=== PATIENT | female | born 1985 | race Caucasian/White ===

== ENCOUNTER 2016-09-14 08:20 | Emergency (ER) | payer OTHER ==
--- NOTE | ~2016-09-14 | CR173 ---
[facility] A Service of [facility] & [facility] RADIOLOGY TEXT RESULTS PATIENT: LATRELL CHAN LOCATION: [facility] : 85 UNIT #: [id number] AGE: [address]: Albania Cardenas SEX: F ORDER DR: [id number] [facility] [address] [place], [place] [address] [id number] E MR#: [id number] Acc #: [id number] NAME: LATRELL CHAN. : 1985 SEX: F STUDY DATE/TIME: 09/14/2016 8:53 UNIT: [facility] ROOM: STUDY DESCRIPTION: CR Knee 3 Views Rt Attending Physician: Albania Cardenas Pa-C Ordering Physician: Ed Eric Schuler M.D. Primary Care Physician: Primary Care Physician No MEDICAL IMAGING REPORT This report is preliminary unless electronic signature is present EXAM Right knee HISTORY Knee pain after falling on concrete 5 days ago. TECHNIQUE 3 views of the knee were obtained. FINDINGS AP and lateral projection of the knee shows smooth articular anatomy without indication of fracture or dislocation at the major weight-bearing surface of the knee. There is no indication of radiopaque foreign body about the knee surface or joint effusion. IMPRESSION Normal knee. Dictated by... Shailesh Cardona M.D. THIS IS AN ELECTRONICALLY VERIFIED REPORT Shailesh Cardona M.D. at 09/15/2016 10:30 AM RLF/elke TD: 09/14/2016 11:47 JOB #: [id number] MEDICAL IMAGING REPORT Page 1 of 1 COPY
[~2016-09-14 08:20] MED LIST: BACTRIM DS TABL1 TA1 PO; CELEXA; CLINDAMYCIN HC300 MG PO; FLEXERIL10 MG PO; GUAIFENESIN CO PO; IBUPROFEN PO; IBUPROFEN800 MG PO; KLONOPIN; LORTAB 10-5001 EACH; LORTAB 7.51 TAB 7.5/ PO; NO MEDICATIONS; PERCOCET 5-3251 TAB PO; PERCOCET PO; PHENERGAN25 MG PO; VIBRAMYCIN100 M1 PO; VICODIN; [UNRECOGNIZED DRUG - REMARK]
== END 2016-09-14 09:40 | disposition home or self-care (01) ==
LOC: CFTX 08:20 → CED 08:20 → CFTX 08:46
DX: S83.91XA Sprain of unspecified site of right knee, initial encounter (principal); F41.8 Other specified anxiety disorders; F17.200 Nicotine dependence, unspecified, uncomplicated; W18.30XA Fall on same level, unspecified, initial encounter; Y92.009 Unspecified place in unspecified non-institutional (private) residence as the place of occurrence of the external cause
CPT/HCPCS: 73562; 99283

== ENCOUNTER → 2016-09-21 | Outpatient (CLI) | payer OTHER ==
--- NOTE | ~2016-09-21 | MR104 ---
[facility] A Service of [facility] RADIOLOGY TEXT RESULTS PATIENT: LATRELL CHAN LOCATION: [facility] : 85 UNIT #: [id number] AGE: [address]: Joselo Lockwood MD SEX: F ORDER DR: [id number] [facility] [address] [place], [place] [address] [id number] O MR#: [id number] Acc #: [id number] NAME: LATRELL CHAN. : 1985 SEX: F STUDY DATE/TIME: 09/21/2016 18:33 UNIT: [facility] ROOM: STUDY DESCRIPTION: MR Knee Wo Contrast Rt Attending Physician: Joselo Lockwood M.D. Ordering Physician: Joselo Lockwood M.D. MRI CENTER REPORT This report is preliminary unless electronic signature is present. EXAM Right knee MRI without contrast 09/21/2016 HISTORY 31-year-old female with medial right knee pain status post fall 1.5 weeks ago. No prior right knee surgery. COMPARISON STUDIES Right knee x-rays 07/05/2009 and 09/14/2016. TECHNIQUE Routine unenhanced multiplanar, multisequence high-field MR imaging right knee was performed. This CT exam was performed with one or more of the following radiation dose reduction techniques: automatic exposure control, adjustment of mA and/or kV according to patient size, and iterative reconstruction. FINDINGS The menisci are intact. Cruciate ligaments are intact. There is a grade 1-2 sprain of the proximal MCL. No evidence of a retracted. MCL rupture. Lateral collateral ligament complex is intact. Extensor mechanism is intact. There is a physiologic amount of joint fluid. No popliteal cyst. Patellofemoral articular cartilage is intact. Medial and lateral compartment articular cartilage is intact. There is a nondisplaced, non-depressed impaction fracture involving the posterior lip of the lateral tibial plateau with associated marrow edema. There is also mild marrow edema along the far medial aspect of the medial [facility] Service of [facility] RADIOLOGY TEXT RESULTS PATIENT: LATRELL CHAN LOCATION: [facility] : 85 UNIT #: [id number] AGE: [address]: Joselo Lockwood MD SEX: F ORDER DR: femoral condyle. Remainder of the bone marrow signal is within expected limits. Visualized musculature is unremarkable. IMPRESSION 1. Grade 1-2 proximal MCL sprain. 2. No evidence of a meniscus tear. Cruciate ligaments are intact. 3. Nondisplaced, non-depressed impaction fracture of the posterior lip of the lateral tibial plateau. 4. Mild marrow edema in the far medial aspect of the medial femoral condyle, which may be secondary to mild bone contusion versus reactive enthesopathic marrow changes. 5. No evidence of significant articular cartilage loss. Dictated by... David Garcia M.D. THIS IS AN ELECTRONICALLY VERIFIED REPORT David Garcia M.D. at 09/23/2016 8:32 AM JKB/pcl TD: 09/22/2016 22:52 JOB #: [id number] MRI CENTER REPORT Page 1 of 1 COPY
== END | disposition home or self-care (01) ==
LOC: CMRI 17:25
DX: M25.461 Effusion, right knee (principal); S83.501A Sprain of unspecified cruciate ligament of right knee, initial encounter; S82.141A Displaced bicondylar fracture of right tibia, initial encounter for closed fracture
CPT/HCPCS: 73721

== ENCOUNTER 2016-11-11 03:26 | Emergency (ER) | payer OTHER ==
[~2016-11-11] VITALS: Ht 170.2 cm; Wt 79.4 kg
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
[2016-11-11 04:17] LABS: URINE SOURCE CLEAN CATCH
[2016-11-11 04:25] LABS: URINE APPEARANCE CLEAR; URINE BILIRUBIN NEG (NEG); URINE BLOOD TRACE (NEG); URINE COLOR YELLOW; URINE GLUCOSE NEG (NEG); URINE KETONE 2+ (NEG); URINE LEUKOCYTE ESTERASE 1+ (NEG); URINE NITRATE NEG (NEG); URINE PROTEIN TRACE (NEG); URINE SPECIFIC GRAVITY 1.022 (1.003-1.035)
[2016-11-11 04:28] LABS: URINE BACTERIA AUWI NEG (NEGATIVE); URINE SQUAMOUS EPITHELIAL CELL OCC /[HPF]
[2016-11-11 04:34] LABS: AMPHETAMINE POS (NEG); BARBITURATES NEG (NEG); BENZODIAZEPINES POS (NEG); COCAINE NEG (NEG); CULTURE INDICATED? NO; MARIJUANA POS (NEG); OPIATES POS (NEG); TRICYCLIC ANTIDEPRESSANTS NEG (NEG); U METHADONE NEG (NEG)
[2016-11-11 05:00] LABS: BASOPHIL# 0.1 X10e3 (0-0.3); BASOPHIL% 0.4 % (0-2.5); EOSINOPHIL% 0.3 % (0.0-7.0); HEMATOCRIT 40.8 % (35.0-45.0); HEMOGLOBIN 13.6 gm/dL (12.0-16.0); LYMPHOCYTE# 2.9 X10e3 (1.0-3.5); LYMPHOCYTE% 21.4 % (17.0-45.0); MEAN CELL VOLUME 90.7 FL (83-96); MEAN CORPUSCULAR HEMOGLOBIN 30.1 PG (28-34); MEAN CORPUSCULAR HGB CONC 33.2 g/dL (30-36); MEAN PLATELET VOLUME 9.2 FL (6.5-11.5); MONOCYTE# 0.9 X10e3 (0-1.0); MONOCYTE% 6.9 % (3.0-12.0); NEUTROPHIL# 9.5 X10e3 (1.5-7.1); PLATELET COUNT 247 X10e3 (140-420); RED CELL DISTRIBUTION WIDTH 14.7 % (11.0-15.5); WHITE BLOOD COUNT 13.4 X10e3 (4.0-10.5)
[2016-11-11 05:01] LABS: DIFF IND NO
[2016-11-11 06:05] LABS: ALBUMIN SERUM 4.3 g/dL (3.5-5.0); BILIRUBIN, DIRECT 0.2 mg/dL (0.0-0.2); BILIRUBIN,INDIRECT 0.7 mg/dL (0.0-0.9); BILIRUBIN,TOTAL 0.9 mg/dL (0.2-2.0); BUN/CREATININE RATIO 13.33; CALCIUM SERUM 8.9 mg/dL (8.4-10.2); CREATININE SERUM 0.6 mg/dL (0.6-1.4); GLOM FILT RATE Estimated 121.5 mL/min (>60); POTASSIUM 3.3 mmol/L (3.5-5.1); PROTEIN TOTAL SERUM 7.4 g/dL (6.0-8.3)
== END 2016-11-11 08:32 | disposition home or self-care (01) ==
LOC: CED 03:26
PROVIDERS: Emergency Medicine
DX: S32.029A Unspecified fracture of second lumbar vertebra, initial encounter for closed fracture (principal); S01.81XA Laceration without foreign body of other part of head, initial encounter; F19.10 Other psychoactive substance abuse, uncomplicated; Z98.51 Tubal ligation status; F32.9 Major depressive disorder, single episode, unspecified; F41.9 Anxiety disorder, unspecified; F17.210 Nicotine dependence, cigarettes, uncomplicated; V49.40XA Driver injured in collision with unspecified motor vehicles in traffic accident, initial encounter
CPT/HCPCS: 36415; 70450; 71010; 72072; 72100; 72125; 72131; 80048; 80076; 80307; 81003; 83690; 84703; 85025; 96361; 96374; 96375; 99284; G0480; J1170; J2405